=== PATIENT | female | born 1955 | race Caucasian/White ===

== ENCOUNTER 2024-02-03 14:57 | Inpatient (IN) ==
[2024-02-03 20:04] LABS: BASOPHILS # (AUTO) 0.1 X10^3/uL (0.0-0.1); BASOPHILS % (AUTO) 0.7 % (0.2-1.0); EOSINOPHILS # (AUTO) 0.2 x10^3/uL (0.0-0.2); EOSINOPHILS % (AUTO) 2.3 % (0.9-2.9); HEMOGLOBIN 11.2 g/dL (12.0-16.0); LYMPHOCYTES # (AUTO) 2.2 X10^3/uL (1.3-2.9); LYMPHOCYTES % (AUTO) 22.2 % (21.0-51.0); MEAN CORPUSCULAR HEMOGLOBIN 30.8 pg (27.0-34.0); MEAN CORPUSCULAR VOLUME 90.8 fL (80.0-100.0); MONOCYTES # (AUTO) 0.9 x10^3/uL (0.3-0.8); MONOCYTES % (AUTO) 9.6 % (0.0-13.0); NEUTROPHILS # (AUTO) 6.4 x10^3/uL (2.2-4.8); NEUTROPHILS % (AUTO) 65.2 % (42.0-75.0); PLATELET COUNT 268 X10^3/uL (150.0-450.0); RED BLOOD COUNT 3.64 X10^6/uL (3.5-5.4); RED CELL DISTRIBUTION WIDTH 12.6 % (11.6-16.5); WHITE BLOOD COUNT 9.8 X10^3/uL (3.6-10.0)
[2024-02-03 20:13] LABS: ALBUMIN 3.3 g/dL (3.4-5.0); CALCIUM 9.8 mg/dL (8.5-10.1); CARBON DIOXIDE 26.9 mmol/L (21-32); COR CA(FOR HYPOALB) 10.4 mg/dL (8.5-10.1); CREATININE 1.53 mg/dL (0.55-1.02); POTASSIUM 4.6 mmol/L (3.5-5.1); TOTAL PROTEIN 7.6 g/dL (6.4-8.2)
[2024-02-03 20:15] VITALS: BMI 32.0
[2024-02-03] MEDS ORDERED: LR 1,000 ML IV 1,000 ML IV ONE (21:07)
[2024-02-03] MEDS: NovoLIN R (or HumuLIN R) SC PRN (21:44)
[2024-02-03] MEDS: ALPRAZOLAM ODT PO PRN (21:45)
[2024-02-03] MEDS: REQUIP PO SCH (21:45)
[2024-02-03] MEDS: LR 1,000 ML IV 1,000 ML IV SCH (21:47)
--- NOTE | 2024-02-03 22:01 | EKG ---
Test Reason : Prior to surgery Blood Pressure : */* mmHG Vent. Rate : 57 BPM Atrial Rate : 57 BPM P-R Int : 142 ms QRS Dur : 94 ms QT Int : 400 ms P-R-T Axes : 63 28 99 degrees QTc Int : 389 ms Sinus bradycardia with sinus arrhythmia Nonspecific ST and T wave abnormality Abnormal ECG No previous ECGs available Confirmed by Kulwant Mckeon MD ([id number]) on 02/04/2024 7:37:27 AM Referred By: Confirmed By: Kulwant Mckeon MD
[2024-02-03] MEDS: LOVENOX INJ 80 MG SYR SC SCH (22:02)
--- NOTE | 2024-02-04 00:02 | NOTE.SOAP ---
Soap Note Note for Day of Date of Exam: 02/03/24 Subjective Data Subjective Data: admitted with ischemic changes left foot . Hx of arterial stent placed right leg in past, history of past left femoral endarterectomy . Objective Data Temperature: 97.7 F Pulse Rate: 70 Respiratory Rate: 20 Blood Pressure: 205/87 O2 Sat by Pulse Oximetry: 98 Objective Data: Rubor , painful left foot , no palpable distal pulses , Cr=1.53 Assessment Assessment: Ischemic left foot Plan Plan: Therapeutic Lovenox , unable to do CTA due to high creatinine. Will hydrate tonight and plan on table arteriogram left leg with appropriate arterial ontervention.
[2024-02-04] MEDS: PERCOCET TAB 5/325 MG PO PRN (00:21)
[2024-02-04] MEDS: SYNTHROID 150 mcg TAB PO SCH (06:07)
--- NOTE | 2024-02-04 07:18 | RAD ---
EXAM:Portable chestHISTORY:Preop vascular surgeryCOMPARISON:NoneFINDINGS:Patient is status post median sternotomy and CABG. Heart is enlarged. No congestive heart failure is noted. Lung ramos are clear. No pleural effusions are identified. Bony thorax is unremarkable.IMPRESSION:Cardiomegaly without congestive heart failureLungs clearTHIS IS AN ELECTRONICALLY VERIFIED FINAL REPORT02/04/2024 7:15 AM - Electronically signed by Prateek Blanchard MD
[2024-02-04] MEDS ORDERED: TOPROL XL PO ONE (08:02)
[2024-02-04] MEDS: NS 1,000 ML IV 1,000 ML ONE (08:45)
[2024-02-04] MEDS: PEPCID 20 MG VIAL ONE (08:45)
[2024-02-04] MEDS: NOZIN NASAL SANITIZER TP ONE (08:45)
[2024-02-04] MEDS: NS 100 ML IV 100 ML ONE (09:20)
[2024-02-04] MEDS: ANCEF VIAL 1 GRAM ONE (09:20)
[2024-02-04] MEDS: VERSED ONE (09:30)
[2024-02-04] MEDS: ZOFRAN INJ 4 MG VIAL ONE (09:30)
[2024-02-04] MEDS: KETAMINE 50 MG/5 ML-NACL SYRNG ONE (09:30)
[2024-02-04] MEDS: DIPRIVAN VIAL 20 ML ONE ×3 (09:30→10:42)
[2024-02-04] MEDS ORDERED: XYLOCAINE 2 % (PLAIN) ONE (09:30)
[2024-02-04] MEDS: FENTANYL VIAL INJ 100 mcg ONE (09:30)
[2024-02-04] MEDS: NEO-SYNEPHRINE INJ ONE (09:30)
[2024-02-04] MEDS: CYMBALTA PO SCH (09:31)
[2024-02-04] MEDS: LIPITOR TAB 80 MG PO SCH (09:31)
[2024-02-04] MEDS: ASPIRIN EC 81 MG PO SCH (09:31)
[2024-02-04] MEDS: BENICAR PO SCH (09:31)
[2024-02-04] MEDS: TOPROL XL PO SCH (09:32)
[2024-02-04] MEDS: LOVENOX INJ 80 MG SYR SC SCH ×2 (09:32→20:29)
[2024-02-04] MEDS: TRICOR TAB 145 MG PO SCH (09:32)
[2024-02-04] MEDS: LYRICA CAP 75 mg PO SCH (09:33)
[2024-02-04] MEDS: PROTONIX TAB 40 MG PO SCH (09:33)
--- NOTE | 2024-02-04 09:34 | DR.H&P ---
H&P History & Physical for Day of: H&P Date: 02/04/24 Chief Complaint Chief Complaint: Rest pain and rubor left foot Allergies Allergies Allergy/AdvReac Type Severity Reaction Status Date / Time No Known Allergies Allergy Verified 02/03/24 20:15 History of Present Illness History of Present Illness: this is a 68 year old female who was referred for rest pain the left foot with ischemis changes the left great toe ,second toe and third toe onto the dorsum of the foot. History of right superficial femoral artery stenting and probable left femoral endarterectomy in the past . Patient with history of diabetes, myocardial infarction in 2004 recurring coronary b ypass grafting. No chest pain or shortness of breath Past Medical History Past Medical History: COPD, Coronary Artery Disease, Diabetes, Dyslipidemia, Hypertension and Hypothyroidism Past Surgical History Surgical History: CABG/Valve Surgery (2004) Additional Surgical History: coronary stent 2022, right leg arterial stent , left femoral endarterectomy Family History Family Medical History: Diabetes Mellitus, Cancer, Heart Failure and Hypertension Social History Does patient currently use any type of tobacco product: No Have you used tobacco products in the last 12 months: No Alcohol Use: None Medications Home Medications: see attached list on admitting note Labs 02/03/24 19:50 02/03/24 19:50 Labs: Laboratory WBC 9.8 X10^3/uL (3.6-10.0) 02/03/24 19:50 RBC 3.64 X10^6/uL (3.5-5.4) 02/03/24 19:50 Hgb 11.2 g/dL (12.0-16.0) L 02/03/24 19:50 Hct 33.0 % (36.0-47.0) L 02/03/24 19:50 MCV 90.8 fL (80.0-100.0) 02/03/24 19:50 MCH 30.8 pg (27.0-34.0) 02/03/24 19:50 MCHC 34.0 g/dL (33.0-35.0) 02/03/24 19:50 RDW 12.6 % (11.6-16.5) 02/03/24 19:50 Plt Count 268 X10^3/uL (150.0-450.0) 02/03/24 19:50 MPV 9.0 fL (7.4-11.0) 02/03/24 19:50 Neut % (Auto) 65.2 % (42.0-75.0) 02/03/24 19:50 Lymph % (Auto) 22.2 % (21.0-51.0) 02/03/24 19:50 Clay % (Auto) 9.6 % (0.0-13.0) 02/03/24 19:50 Eos % (Auto) 2.3 % (0.9-2.9) 02/03/24 19:50 Baso % (Auto) 0.7 % (0.2-1.0) 02/03/24 19:50 Neut # (Auto) 6.4 x10^3/uL (2.2-4.8) H 02/03/24 19:50 Lymph # (Auto) 2.2 X10^3/uL (1.3-2.9) 02/03/24 19:50 Clay # (Auto) 0.9 x10^3/uL (0.3-0.8) H 02/03/24 19:50 Eos # (Auto) 0.2 x10^3/uL (0.0-0.2) 02/03/24 19:50 Baso # (Auto) 0.1 X10^3/uL (0.0-0.1) 02/03/24 19:50 Absolute Nucleated RBC 0.2 /100WBC 02/03/24 19:50 Sodium 141 mmol/L (136-145) 02/03/24 19:50 Corrected Sodium 146 mmol/L (136-145) H 02/03/24 19:50 Potassium 4.6 mmol/L (3.5-5.1) 02/03/24 19:50 Chloride 106 mmol/L (98-107) 02/03/24 19:50 Carbon Dioxide 26.9 mmol/L (21-32) 02/03/24 19:50 BUN 36 mg/dL (7-18) H 02/03/24 19:50 Creatinine 1.53 mg/dL (0.55-1.02) H 02/03/24 19:50 Est GFR (MDRD) Af Amer 43 (>60) L 02/03/24 19:50 Est GFR (MDRD) Non-Af 36 (>60) L 02/03/24 19:50 Glucose 323 mg/dL (65-99) H 02/03/24 19:50 POC Glucose (mg/dL) 123 mg/dL (65-99) H 02/04/24 08:51 Calcium 9.8 mg/dL (8.5-10.1) 02/03/24 19:50 Corrected Calcium 10.4 mg/dL (8.5-10.1) H 02/03/24 19:50 Total Bilirubin 0.30 mg/dL (0.2-1.0) 02/03/24 19:50 AST 16 Units/L (15-37) 02/03/24 19:50 ALT 24 Units/L (12-78) 02/03/24 19:50 Alkaline Phosphatase 95 Units/L (46-116) 02/03/24 19:50 Total Protein 7.6 g/dL (6.4-8.2) 02/03/24 19:50 Albumin 3.3 g/dL (3.4-5.0) L 02/03/24 19:50 Globulin 4.3 g/dL (2.5-4.5) 02/03/24 19:50 Albumin/Globulin Ratio 0.8 Ratio (1.1-2.1) L 02/03/24 19:50 Review of Systems Constitutional: See HPI Eyes: No Symptoms Reported ENT: No Symptoms Reported Respiratory: No Symptoms Reported Cardiovascular: No Symptoms Reported Gastrointestinal: No Symptoms Reported Genitourinary: No Symptoms Reported Musculoskeletal: No Symptoms Reported Skin: See HPI Neurological: No Symptoms Reported Physical Exam Vital Signs: Vital Signs Temperature 97.9 F Pulse Rate [Brachial] 76 Pulse Rate 55 Respiratory Rate 16 Respiratory Rate 20 Respiratory Rate 18 Blood Pressure [Left Arm] 140/63 Blood Pressure 169/71 O2 Sat by Pulse Oximetry 95 O2 Sat by Pulse Oximetry 97 Oriented: Normal, Time, Person and Place Eyes: Normal Ear: Normal Nose: Normal Throat: Normal Respiratory: Clear Throughout Cardiovascular: Normal and Other (absent distal pulses both feet. rubor of the left foot with skin changes of the left great toe, second toe and third toe ) : Normal Auscultation: Bowel Sounds: Normal Palpation: Normal Tenderness: Normal Skin: Normal Musculoskeletal: Normal Psychiatric: Normal Mood Description: Calm Affect: Normal Speech Pattern: Clear and Appropriate Assessment/Plan (1) Atherosclerosis of [place] arteries of extremities with rest pain, left leg: Status: Acute Plan: due to creatinine greater than 1.5 will plan on table arteriogram of the left leg and appropriate arterial intervention (2) Chronic ischemic heart disease, unspecified: Status: Acute Plan: stable, pre op EKG (3) History of OK (myocardial infarction): Status: Acute Plan: stable (4) COPD (chronic obstructive pulmonary disease): Status: Acute Plan: stable (5) Type 2 diabetes mellitus without complications: Status: Acute Plan: sliding scale insulin (6) Essential (primary) hypertension: Status: Acute Plan: home medications (7) Hypothyroid: Status: Acute Plan: thyroid replacement Review H&P Reviewed: Yes
[2024-02-04] MEDS: VISIPAQUE 100 ML ONE (09:50)
[2024-02-04] MEDS: HEPARIN SODIUM IN D5W 75,000 UNITS/1,500 ML BAG ONE (09:50)
[2024-02-04] MEDS: VISIPAQUE 50 ML ONE (09:50)
[2024-02-04] MEDS: MARCAINE 0.5% ONE (09:50)
[2024-02-04] MEDS: HEPARIN SODIUM INJ 5000 UNITS ONE ×2 (09:52→10:52)
[2024-02-04] MEDS: PROTAMINE SULFATE 50 MG VIAL ONE (10:55)
--- NOTE | 2024-02-04 11:15 | OR.IMMED ---
IMMEDIATE POST-OP NOTE Immediate Post-Op Note Date of surgery/procedure: 02/04/24 Pre-Op Diagnosis: Critical schema left leg Post-Op Diagnosis: same Procedure: aortogram , arteriogram left leg , Unable to get across complete oclusion of left SFA, popliteal and tib-peroneal trunk, runoof vessels x 3 intact but are small Description of Procedure: see dictation Surgeon/Facilities Maintenance Manager: Ta Findings: as above Estimated Blood Loss: 300 cc Complications: none Discharge Progress Notes: return to floor, therapeutic Lovenox
[2024-02-04 21:47] VITALS: RESP 20
[2024-02-05 06:27] LABS: CALCIUM 8.8 mg/dL (8.5-10.1); CARBON DIOXIDE 31.5 mmol/L (21-32); CREATININE 1.47 mg/dL (0.55-1.02); POTASSIUM 4.6 mmol/L (3.5-5.1)
[2024-02-05] MEDS ORDERED: TOPROL XL PO ONE (08:48)
--- NOTE | 2024-02-05 10:58 | DR.OPNOTE ---
OP NOTE Pre-Op Diagnosis: critical ischemia left leg Post-Op Diagnosis: same Procedure Date Date Of Procedure: 02/04/24 Procedure: PROCEDURE: DIAGNOSTIC AORTOGRAM, DIAGNOSTIC ARTERIOGRAM LEFT LEG, FAILED ATTEMPTS TO GET ACROSS LONG SEGMENT OCCLUSION LEFT LEFT ARTERIES FROM ABOVE AND BELOW. NARRATIVE : The patient was taken to the operative suite and placed in the supine position. The right groin and entire left leg were prepped and draped in sterile fashion. The patient was given intravenous sedation supervised by myself. Time out for the procedure obtained. Ultrasound used to identify the right femoral artery and the skin overlying it infiltrated with 0.5% Marcaine. Ultrasound then used to guide puncture of the right femoral artery and a 0.012 inch guide wire was placed. Incision made over the guide wire at the skin edge with a # 11 knife blade and a micro sheath placed over the guide wire into the right femoral artery The small guidewire exchanged for a 0.035 inch Advantage glide wire and the micro sheath exchanged for a 5 Fr vascular sheath. Patient given 5000 units of intravenous heparin. Omni catheter was placed over the guide wire into the aorta and diagnostic aortogram carried out with the power injector showing patebt aorta and iliac arteies . Omni catheter was used to steer the guide wire down the left common iliac artery to the distal left external iliac artery . Omni catheter was exchanged for a [place] catheter and sequential arteriograms carried out of the left lower extremity showing complete long segment occlusion from the takeoff of the left superficial femoral artery through the left popliteal artery with 3 vessel runoff to the foot but all runoff arteries were small. The 5 Fr sheath in the right groin then exchanged for a 7 Fr destination sheath which was parked in the left external iliac artery . [place] catheter and the guide wire were attempted to traverse the arteries of the left leg but was unsuccessful. Ultrasound used to identify the left posterior tibial artery and the skin overlying it infiltrated with 0.5% Marcaine . Ultrasound used to guide puncture of the left posterior tibial artery and a 0.012 inch guidewire placed . Incision over the guide wire made with a #11 knife blade and a slim sheath placed over the guide wire into the posterior tibial artery . Arteriogram confirmed location in the left posterior tibial artery and attempt to place a wire from below through the occlusion at the cap of the popliteal artery was unsuccessful. We attempted the same process through the anterior tibial but this was also unsuccessful. The selective catheterization was to the left external iliac artery . All wires and devices removed. The 7 Fr sheath was pulled back into the aorta and a 0.035 inch wire placed. The destination sheath exchanged for an Angioseal device used to close the puncture of the right femoral artery. Tibial band used to compress the needle sticks of the left ankle . Dressing applied to the left groin. The patient taken to [facility] in good condition. She will need either hybrid approach to this or below knee bypass. Both greater saphenous veins have been used for CABG. Type of Anesthesia: Local Anesthesia Comment: plus MAC Findings: Complete occlusion of left superficial femoral artery beginning at takeoff ofm the left superficial femoral artery extending throught the left popliteal and left tibial peroneal trunk with 3 vessesl runoff but all runoff arteries are small. Type of Fluids Used:: Lactated Ringers Total Amount of Fluid Infused:: 800cc EBL: 200cc Complications:: none Needle/Sponge Count:: correct Disposition/Condition: Pt. tolerated procedure without difficulty. Extubated in the OR and taken to PACU in stable condition.
--- NOTE | 2024-02-05 11:40 | W.DIS.FURT ---
Summary of Discharge Discharge Summary of Date Date of Exam: 02/05/24 Admission Date Date of Admission: 02/03/24 Admission Diagnosis Hospital Course: This is a 68 year old female who presented to my office on February 02 with pain of the left foot and changes of the left foot consistent with severe ischemia. She had no palpable pulses distally of that foot. She had been treated for a " fungal infection" . She was admitted and placed on therapeutic Lovenox. CT angiogram could not be obtained because of increased creatinine of 1.53. Cristina szymanski was taken to the operative suite on January the for aortogram and arteriogram the left leg showing complete total occlusion from the takeoff of the left superficial femoral artery all the way through the left popliteal artery with 3 vessel runoff to the ankle but all run off vessels are small. Past history of significant ischemia both legs and has had stenting of the right superficial femoral artery and endarterectomy of the left common femoral artery. I could not get a wire through the complete occlusion either above or below. She has no saphenous vein in place because they have all been used for coronary artery bypass grafting. I gave options for hybrid open procedure of the left groin and attempt to place a wire and do atherectomy and stenting of the left superficial femoral and left politeal artery versus femoral distal bypass . Patient would like to see Dr. Haywood for a second opinion and we will make an appointment for her to see him . She will be on her usual home medications with the addition of aspirin 81 milligrams daily. She also will be giving prescription for Percocet, 5 milligram tablets, 1 every 6 hours PRN pain. Creatinine on discharge was improved from admission , now 1.47. Vital Signs: Vital Signs (72 hours) 02/04/24 00:01 02/03/24 20:00 02/03/24 21:51 Temperature 97.7 F 97.7 F Pulse Rate 70 Pulse Rate [Brachial] 70 Respiratory Rate 20 20 Blood Pressure 205/87 Blood Pressure [Left Arm] 205/87 Blood Pressure [Right Arm] O2 Sat by Pulse Oximetry 98 98 Oxygen Delivery Method Room Air Room Air FIO2% 21 02/04/24 00:00 02/04/24 00:21 02/04/24 01:21 Temperature 98.1 F Pulse Rate Pulse Rate [Brachial] 64 Respiratory Rate 20 20 18 Blood Pressure Blood Pressure [Left Arm] 150/66 Blood Pressure [Right Arm] O2 Sat by Pulse Oximetry 97 Oxygen Delivery Method Room Air FIO2% 02/04/24 04:00 02/04/24 08:56 02/04/24 12:11 Temperature 97.9 F Pulse Rate 55 L Pulse Rate [Brachial] 76 Respiratory Rate 20 16 16 Blood Pressure 169/71 Blood Pressure [Left Arm] 140/63 Blood Pressure [Right Arm] O2 Sat by Pulse Oximetry 97 95 Oxygen Delivery Method Room Air Room Air FIO2% 02/04/24 08:00 02/04/24 07:30 02/04/24 13:11 Temperature 97.6 F Pulse Rate Pulse Rate [Brachial] 72 Respiratory Rate 18 16 Blood Pressure Blood Pressure [Left Arm] 158/68 Blood Pressure [Right Arm] O2 Sat by Pulse Oximetry 93 L Oxygen Delivery Method Room Air Room Air FIO2% 21 02/04/24 11:15 02/04/24 11:30 02/04/24 11:45 Temperature 98.4 F 98.0 F 98.0 F Pulse Rate Pulse Rate [Brachial] 71 68 71 Respiratory Rate 14 14 16 Blood Pressure Blood Pressure [Left Arm] Blood Pressure [Right Arm] 144/67 142/64 169/72 O2 Sat by Pulse Oximetry 100 100 100 Oxygen Delivery Method FIO2% 02/04/24 12:00 02/04/24 12:15 02/04/24 13:15 Temperature 97.6 F 97.0 F L 97.3 F L Pulse Rate Pulse Rate [Brachial] 61 73 72 Respiratory Rate 16 15 16 Blood Pressure Blood Pressure [Left Arm] Blood Pressure [Right Arm] 131/62 154/67 144/66 O2 Sat by Pulse Oximetry 100 100 100 Oxygen Delivery Method FIO2% 02/04/24 14:15 02/04/24 15:15 02/04/24 16:15 Temperature 97.7 F 97.6 F 97.1 F L Pulse Rate Pulse Rate [Brachial] 73 77 74 Respiratory Rate 16 15 15 Blood Pressure Blood Pressure [Left Arm] Blood Pressure [Right Arm] 167/77 145/64 139/64 O2 Sat by Pulse Oximetry 100 100 100 Oxygen Delivery Method FIO2% 02/04/24 19:29 02/04/24 19:00 02/04/24 20:29 Temperature Pulse Rate 79 Pulse Rate [Brachial] Respiratory Rate 18 Blood Pressure Blood Pressure [Left Arm] Blood Pressure [Right Arm] O2 Sat by Pulse Oximetry 99 Oxygen Delivery Method Room Air FIO2% 21 02/04/24 20:00 02/04/24 21:29 02/05/24 00:00 Temperature 98.1 F 98.6 F Pulse Rate Pulse Rate [Brachial] 66 66 Respiratory Rate 18 20 20 Blood Pressure Blood Pressure [Left Arm] 160/82 152/65 Blood Pressure [Right Arm] O2 Sat by Pulse Oximetry 96 95 Oxygen Delivery Method Room Air Room Air FIO2% 02/05/24 04:00 Temperature 98.1 F Pulse Rate Pulse Rate [Brachial] 85 Respiratory Rate 20 Blood Pressure Blood Pressure [Left Arm] 162/65 Blood Pressure [Right Arm] O2 Sat by Pulse Oximetry 95 Oxygen Delivery Method Room Air FIO2% Labs: Laboratory Last Values WBC 9.8 X10^3/uL (3.6-10.0) 02/03/24 19:50 RBC 3.64 X10^6/uL (3.5-5.4) 02/03/24 19:50 Hgb 11.2 g/dL (12.0-16.0) L 02/03/24 19:50 Hct 33.0 % (36.0-47.0) L 02/03/24 19:50 MCV 90.8 fL (80.0-100.0) 02/03/24 19:50 MCH 30.8 pg (27.0-34.0) 02/03/24 19:50 MCHC 34.0 g/dL (33.0-35.0) 02/03/24 19:50 RDW 12.6 % (11.6-16.5) 02/03/24 19:50 Plt Count 268 X10^3/uL (150.0-450.0) 02/03/24 19:50 MPV 9.0 fL (7.4-11.0) 02/03/24 19:50 Neut % (Auto) 65.2 % (42.0-75.0) 02/03/24 19:50 Lymph % (Auto) 22.2 % (21.0-51.0) 02/03/24 19:50 [place] % (Auto) 9.6 % (0.0-13.0) 02/03/24 19:50 Eos % (Auto) 2.3 % (0.9-2.9) 02/03/24 19:50 Baso % (Auto) 0.7 % (0.2-1.0) 02/03/24 19:50 Neut # (Auto) 6.4 x10^3/uL (2.2-4.8) H 02/03/24 19:50 Lymph # (Auto) 2.2 X10^3/uL (1.3-2.9) 02/03/24 19:50 [place] # (Auto) 0.9 x10^3/uL (0.3-0.8) H 02/03/24 19:50 Eos # (Auto) 0.2 x10^3/uL (0.0-0.2) 02/03/24 19:50 Baso # (Auto) 0.1 X10^3/uL (0.0-0.1) 02/03/24 19:50 Absolute Nucleated RBC 0.2 /100WBC 02/03/24 19:50 Sodium 144 mmol/L (136-145) 02/05/24 06:04 Corrected Sodium 145 mmol/L (136-145) 02/05/24 06:04 Potassium 4.6 mmol/L (3.5-5.1) 02/05/24 06:04 Chloride 109 mmol/L (98-107) H 02/05/24 06:04 Carbon Dioxide 31.5 mmol/L (21-32) 02/05/24 06:04 BUN 28 mg/dL (7-18) H 02/05/24 06:04 Creatinine 1.47 mg/dL (0.55-1.02) H 02/05/24 06:04 Est GFR (MDRD) Af Amer 45 (>60) L 02/05/24 06:04 Est GFR (MDRD) Non-Af 37 (>60) L 02/05/24 06:04 Glucose 154 mg/dL (65-99) H 02/05/24 06:04 POC Glucose (mg/dL) 152 mg/dL (65-99) H 02/05/24 05:51 Calcium 8.8 mg/dL (8.5-10.1) 02/05/24 06:04 Corrected Calcium 10.4 mg/dL (8.5-10.1) H 02/03/24 19:50 Total Bilirubin 0.30 mg/dL (0.2-1.0) 02/03/24 19:50 AST 16 Units/L (15-37) 02/03/24 19:50 ALT 24 Units/L (12-78) 02/03/24 19:50 Alkaline Phosphatase 95 Units/L (46-116) 02/03/24 19:50 Total Protein 7.6 g/dL (6.4-8.2) 02/03/24 19:50 Albumin 3.3 g/dL (3.4-5.0) L 02/03/24 19:50 Globulin 4.3 g/dL (2.5-4.5) 02/03/24 19:50 Albumin/Globulin Ratio 0.8 Ratio (1.1-2.1) L 02/03/24 19:50 Reason For Visit: CRITICAL ISCHEMIA LEFT FOOT Discharge Date Discharge Date: 02/05/24 Discharge Diagnosis All Active Problems (Updated 02/04/24 @ 09:32 by Junior Chappell) Hypothyroid (Acute) Essential (primary) hypertension (Acute) Type 2 diabetes mellitus without complications (Acute) COPD (chronic obstructive pulmonary disease) (Acute) History of [place] (myocardial infarction) (Acute) Chronic ischemic heart disease, unspecified (Acute) Atherosclerosis of [place] arteries of extremities with rest pain, left leg (Acute) Plan of Treatment: Continue with present treatment and follow up plan. Pt is to keep follow up appointment as instructed and take medications as ordered. Discharge Medications Discharge Medications: No Known Allergies Allergy (Verified 02/03/24 20:15) CONTINUE taking the following medications alprazolam 1 mg tablet 1 mg PO BID PRN 02/04/24 [History] alprazolam 1 mg tablet 1 mg PO BID PRN 02/04/24 [History] amlodipine 5 mg tablet 5 mg PO QDAY 02/04/24 [History] atorvastatin 80 mg tablet 80 mg PO QDAY 02/04/24 [History] cephalexin 500 mg capsule 500 mg PO TID 02/04/24 [History] cilostazol 100 mg tablet 100 mg PO BID pain 02/04/24 [History] duloxetine 60 mg capsule,delayed release 60 mg PO QDAY 02/04/24 [History] empagliflozin 25 mg tablet (Jardiance) 25 mg PO QDAY 02/04/24 [History] estradiol 0.01% (0.1 mg/gram) vaginal cream 1 g vaginal PRN 02/04/24 [History] fenofibrate nanocrystallized 145 mg tablet 145 mg PO QDAY 02/04/24 [History] furosemide 20 mg tablet 20 mg PO BID 02/04/24 [History] glimepiride 1 mg tablet 1 mg PO BID diabetes mellitus 02/04/24 [History] hydrocodone 10 mg-acetaminophen 325 mg tablet 1 tab PO QID PRN 02/04/24 [History] insulin glargine 100 unit/mL subcutaneous solution (Lantus U-100 Insulin) 60 unit subcut BID 02/04/24 [History] insulin syringe-needle U-100 1 mL 31 gauge x 5/16" (BD Insulin Syringe Ultra- Fine) 02/04/24 [History] levothyroxine 150 mcg tablet 150 mcg PO QAM 02/04/24 [History] liothyronine 25 mcg tablet 25 mcg PO QAM 02/04/24 [History] metoprolol succinate 100 mg tablet,extended release 24 hr 100 mg PO QDAY 02/04/24 [History] nitroglycerin 0.4 mg sublingual tablet 0.4 mg sublingual QDAY PRN angina 02/04/24 [History] olmesartan 40 mg-hydrochlorothiazide 25 mg tablet 1 tab PO QDAY 02/04/24 [History] pantoprazole 40 mg tablet,delayed release 40 mg PO QDAY 02/04/24 [History] pregabalin 75 mg capsule 75 mg PO BID 02/04/24 [History] ropinirole 0.5 mg tablet 0.5 mg PO QPM 02/04/24 [History] ticagrelor 60 mg tablet (Brilinta) 60 mg PO BID 02/04/24 [History] Aspirin 81 mg po daily Percocet, 5mg , 1 po q 6 hr PRN pain Discharge Disposition Assessment: see hospital course Discharge Plan Discharge Plan Hospital Course: This is a 68 year old female who presented to my office on February 02 with pain of the left foot and changes of the left foot consistent with severe ischemia. She had no palpable pulses distally of that foot. She had been treated for a " fungal infection" . She was admitted and placed on therapeutic Lovenox. CT angiogram could not be obtained because of increased creatinine of 1.53. Cristina szymanski was taken to the operative suite on May the 7th for aortogram and arteriogram the left leg showing complete total occlusion from the takeoff of the left superficial femoral artery all the way through the left popliteal artery with 3 vessel runoff to the ankle but all run off vessels are small. Past history of significant ischemia both legs and has had stenting of the right superficial femoral artery and endarterectomy of the left common femoral artery. I could not get a wire through the complete occlusion either above or below. She has no saphenous vein in place because they have all been used for coronary artery bypass grafting. I gave options for hybrid open procedure of the left groin and attempt to place a wire and do atherectomy and stenting of the left superficial femoral and left politeal artery versus femoral distal bypass . Patient would like to see Dr. Haywood for a second opinion and we will make an appointment for her to see him . She will be on her usual home medications with the addition of aspirin 81 milligrams daily. She also will be giving prescription for Percocet, 5 milligram tablets, 1 every 6 hours PRN pain. Creatinine on discharge was improved from admission , now 1.47. Patient Disposition: 01 HOME, SELF-CARE Condition: Stable Health Concerns: Post Hospitalization: new medications and changes needed to prevent readmission or further decline. Pt educated and given instructions on all concerns. Care Plan Goals: Problem: Pain/Alteration in Comfort Goal: Improve/ Resolve Pain; Achieve Pain Tolerance Instructions: Take pain medications as prescribed. Contact your primary care provider if your pain is unrelieved or worsens. Follow up with primary care provider as directed. Plan of Treatment: Continue with present treatment and follow up plan. Pt is to keep follow up appointment as instructed and take medications as ordered. Assessment: see hospital course Prescription drug monitoring program results: PDMP reviewed and no concerns identified Prescriptions: New oxycodone-acetaminophen [Percocet] 5-325 mg tablet 1 tab PO Q6H MDD 4 PRNQty: 30 0RF Continued cilostazol 100 mg tablet 100 mg PO BID atorvastatin 80 mg tablet 80 mg PO QDAY insulin glargine [Lantus U-100 Insulin] 100 unit/mL solution 60 unit SUBCUT BID alprazolam 1 mg tablet 1 mg PO BID PRN alprazolam 1 mg tablet 1 mg PO BID PRN liothyronine 25 mcg tablet 25 mcg PO QAM metoprolol succinate 100 mg tablet extended release 24 hr 100 mg PO QDAY amlodipine 5 mg tablet 5 mg PO QDAY hydrocodone-acetaminophen 10-325 mg tablet 1 tab PO QID PRN glimepiride 1 mg tablet 1 mg PO BID cephalexin 500 mg capsule 500 mg PO TID pantoprazole 40 mg tablet,delayed release (DR/EC) 40 mg PO QDAY ropinirole 0.5 mg tablet 0.5 mg PO QPM levothyroxine 150 mcg tablet 150 mcg PO QAM nitroglycerin 0.4 mg tablet, sublingual 0.4 mg sublingual QDAY PRN (Reason: angina) (DME) insulin syringe-needle U-100 [BD Insulin Syringe Ultra-Fine] 1 mL 31 gauge x 5/16 syringe MISCELLANEOUS BID furosemide 20 mg tablet 20 mg PO BID estradiol 0.01 % (0.1 mg/gram) cream 1 g vaginal PRN olmesartan-hydrochlorothiazide 40-25 mg tablet 1 tab PO QDAY duloxetine 60 mg capsule,delayed release(DR/EC) 60 mg PO QDAY pregabalin 75 mg capsule 75 mg PO BID fenofibrate nanocrystallized 145 mg tablet 145 mg PO QDAY Jardiance 25 mg tablet 25 mg PO QDAY Brilinta 60 mg tablet 60 mg PO BID Follow ups/Referrals Follow ups/Referrals: Junior Chappell [STAFF PHYSICIAN] - 02/19/24 1:15 pm Instructions Instructions: Endovascular Therapy for Peripheral Vascular Disease, Care After Stand Alone Forms: Excuse From Work or School, Post Hospital Follow Up Care
[2024-02-05 11:58] VITALS: BP 193/81; PULSE 89; TEMP 99.5; O2SAT 97
== END 2024-02-05 11:55 | disposition home or self-care (01) | DRG 301 ==
LOC: EDBD → MED/SURG 18:54
PROVIDERS: ADMIT Surgery; ATTEND Surgery
DX: E03.8 Other specified hypothyroidism; R94.31 Abnormal electrocardiogram [ECG] [EKG]; M79.672 Pain in left foot; I25.2 Old myocardial infarction; F41.8 Other specified anxiety disorders; I70.222 Atherosclerosis of native arteries of extremities with rest pain, left leg; J44.9 Chronic obstructive pulmonary disease, unspecified; E78.5 Hyperlipidemia, unspecified; E11.65 Type 2 diabetes mellitus with hyperglycemia; Z65.8 Other specified problems related to psychosocial circumstances; I25.10 Atherosclerotic heart disease of native coronary artery without angina pectoris; Z01.810 Encounter for preprocedural cardiovascular examination; I10 Essential (primary) hypertension